=== PATIENT | female | born 1980 | race Caucasian/White ===

== ENCOUNTER → 2019-05-12 09:02 | Outpatient (BNVA) | payer SELFPAY | PROVIDERS: Family Provider Registered Nurse; PCP Registered Nurse; Visit Provider Registered Nurse | DX: R05 Cough; F51.01 Primary insomnia; J01.40 Acute pansinusitis, unspecified; E11.42 Type 2 diabetes mellitus with diabetic polyneuropathy; F17.200 Nicotine dependence, unspecified, uncomplicated | CPT/HCPCS: 82044; 83036; 87804 ==

== ENCOUNTER → 2019-12-09 11:27 | Outpatient (BNVA) | payer SELFPAY | PROVIDERS: Family Provider Registered Nurse; PCP Registered Nurse; Visit Provider Registered Nurse | DX: E11.9 Type 2 diabetes mellitus without complications (principal); E78.5 Hyperlipidemia, unspecified | CPT/HCPCS: 80053; 80061; 83036 ==

== ENCOUNTER → 2020-05-08 00:01 | Outpatient (BNVA) | payer SELFPAY | PROVIDERS: Family Provider Registered Nurse; PCP Registered Nurse; Visit Provider Registered Nurse | DX: I10 Essential (primary) hypertension (principal); E78.5 Hyperlipidemia, unspecified; E11.42 Type 2 diabetes mellitus with diabetic polyneuropathy; F17.200 Nicotine dependence, unspecified, uncomplicated | CPT/HCPCS: 80053; 80061; 83036; 85025 ==

== ENCOUNTER → 2020-09-05 11:07 | Outpatient (BNVA) | payer SELFPAY | PROVIDERS: Family Provider Registered Nurse; PCP Registered Nurse; Visit Provider Registered Nurse | DX: E11.42 Type 2 diabetes mellitus with diabetic polyneuropathy (principal); E78.5 Hyperlipidemia, unspecified | CPT/HCPCS: 80053; 80061; 83036; 85025 ==

== ENCOUNTER → 2020-12-19 11:04 | Outpatient (BNVA) | payer MEDICAID, SELFPAY | PROVIDERS: Family Provider Registered Nurse; PCP Registered Nurse; Visit Provider Registered Nurse | DX: E11.42 Type 2 diabetes mellitus with diabetic polyneuropathy (principal); Z23 Encounter for immunization | CPT/HCPCS: 83036 ==

== ENCOUNTER → 2021-06-06 10:09 | Outpatient (BNVA) | payer MEDICAID, SELFPAY | PROVIDERS: Family Provider Registered Nurse; PCP Registered Nurse; Visit Provider Registered Nurse | DX: E11.9 Type 2 diabetes mellitus without complications (principal) | CPT/HCPCS: 80053; 80061; 83036; 85025 ==

== ENCOUNTER → 2021-10-16 11:08 | Outpatient (BNVA) | payer MEDICAID, SELFPAY | PROVIDERS: Family Provider Registered Nurse; PCP Registered Nurse; Visit Provider Registered Nurse | DX: E11.9 Type 2 diabetes mellitus without complications (principal); M54.16 Radiculopathy, lumbar region; E11.42 Type 2 diabetes mellitus with diabetic polyneuropathy; Z12.31 Encounter for screening mammogram for malignant neoplasm of breast | CPT/HCPCS: 80053; 81000; 83036 ==

== ENCOUNTER 2021-10-25 06:19 | Outpatient (CLI) | payer MEDICAID, SELFPAY ==
--- NOTE | 2021-10-25 07:15 | MR_ITS ---
WS: [email or web address] MRI LUMBAR SPINE NONCONTRAST TECHNIQUE: Sagittal T1, T2 and STIR imaging. Axial T1 and T2 imaging. CLINICAL INFORMATION: M54.16 - Radiculopathy, lumbar region COMPARISON: None. FINDINGS: Mild lumbar curve. No acute compression. No high-grade central canal stenosis. Mild disc bulging wors e at L5-S1. L1-L2: Mild facet arthropathy. Spinal canal and foramen are patent. L2-L3: No significant disc bulging. Mild facet arthropathy. Spinal canal and foramen are patent. L3-L4: No significant disc bulging. Mild facet arthropathy. Spinal canal and foramen are patent. L4-L5: Minimal annular bulging. Mild facet arthropathy. Spinal canal and foramen are patent. L5-S1: Shallow RIGHT pericentral disc protrusion. Slight encroachment traversing RIGHT S1 nerve root. Mild facet arthropathy. Mild LEFT foraminal narrowing. Visualized pelvic bony structures: Normal. Paravertebral soft tissues: Normal. MR/MR lumbar spine wo con* [id number] IMPRESSION: 1. Mild lumbar curve. No acute compression. No high-grade central canal stenos is. 2. Tiny shallow RIGHT pericentral protrusion with slight encroachment traversi ng RIGHT S1 nerve root. Recommend correlation for RIGHT S1 nerve root symptoms. 3. Mild LEFT L4-L5 and LEFT L5-S1 bony foraminal narrowing. 4. Mild facet arthropathy L4-L5 and L5-S1.
== END 2021-10-25 06:20 | disposition home or self-care (01) ==
LOC: RAD 06:21
PROVIDERS: PCP Registered Nurse; Visit Provider Registered Nurse
DX: M54.16 Radiculopathy, lumbar region (principal); M47.816 Spondylosis without myelopathy or radiculopathy, lumbar region; M47.817 Spondylosis without myelopathy or radiculopathy, lumbosacral region
CPT/HCPCS: 72148

== ENCOUNTER 2021-10-28 09:59 | Outpatient (CLI) | payer MEDICAID, SELFPAY ==
--- NOTE | 2021-10-28 10:11 | MM_ITS ---
WS: [email or web address] SCREENING DIGITAL TOMOSYNTHESIS MAMMOGRAM WITH CAD HISTORY: Screening COMPARISON: None available. Bilateral CC and MLO with tomosynthesis views submitted. Synthetic mammography reviewed. Computer aid ed detection analyzed. Breast composition: There are scattered areas of fibroglandular density. No suspicious masses, microc alcifications or architectural distortion. Benign calcification central RIGHT breast. MM/[place] [id number] IMPRESSION: BI-RADS: 2-Benign FOLLOW UP: 1 Year Follow-up
== END 2021-10-28 10:00 | disposition home or self-care (01) ==
PROVIDERS: PCP Registered Nurse; Visit Provider Registered Nurse
DX: Z12.31 Encounter for screening mammogram for malignant neoplasm of breast (principal)
CPT/HCPCS: 77063; 77067

== ENCOUNTER → 2021-11-01 10:53 | Outpatient (BNVA) | payer MEDICAID, SELFPAY | PROVIDERS: PCP Registered Nurse; Visit Provider Emergency Medicine | DX: K02.9 Dental caries, unspecified (principal); J02.9 Acute pharyngitis, unspecified | CPT/HCPCS: 87071; 87880 ==

== ENCOUNTER 2021-11-06 06:00 | Outpatient (RCR) | payer MEDICAID, SELFPAY | END 2021-11-06 23:59 | disposition home or self-care (01) | LOC: MPT 06:00 | PROVIDERS: PCP Registered Nurse; Visit Provider Registered Nurse | DX: M54.16 Radiculopathy, lumbar region (principal); M54.9 Dorsalgia, unspecified; G89.29 Other chronic pain | CPT/HCPCS: 97162 ==

== ENCOUNTER 2021-11-07 06:00 | Outpatient (RCR) | payer MEDICAID, SELFPAY | END 2021-12-06 23:59 | disposition home or self-care (01) | LOC: MPT 06:00 | PROVIDERS: PCP Registered Nurse; Visit Provider Registered Nurse | DX: M54.16 Radiculopathy, lumbar region (principal); M54.9 Dorsalgia, unspecified; G89.29 Other chronic pain | CPT/HCPCS: 97110; 97140; G0283 ==

== ENCOUNTER → 2022-02-03 14:55 | Outpatient (BNVA) | payer MEDICAID, SELFPAY | PROVIDERS: PCP Registered Nurse; Visit Provider Anesthesiology Pain Medicine | DX: M47.816 Spondylosis without myelopathy or radiculopathy, lumbar region (principal); E11.9 Type 2 diabetes mellitus without complications; M54.16 Radiculopathy, lumbar region | CPT/HCPCS: 36416; 82962 ==

== ENCOUNTER → 2022-02-11 09:58 | Outpatient (BNVA) | payer MEDICAID, SELFPAY | PROVIDERS: PCP Registered Nurse; Visit Provider Registered Nurse | DX: E11.42 Type 2 diabetes mellitus with diabetic polyneuropathy (principal); F17.200 Nicotine dependence, unspecified, uncomplicated; G62.9 Polyneuropathy, unspecified; Z23 Encounter for immunization; E11.9 Type 2 diabetes mellitus without complications | CPT/HCPCS: 80053; 80061; 83036; 85025 ==

== ENCOUNTER → 2022-03-20 10:25 | Outpatient (BNVA) | payer MEDICAID, SELFPAY | PROVIDERS: PCP Registered Nurse; Visit Provider Anesthesiology Pain Medicine | DX: M54.6 Pain in thoracic spine (principal); M47.894 Other spondylosis, thoracic region | CPT/HCPCS: 72072 ==

== ENCOUNTER 2022-05-21 07:48 | Outpatient (CLI) | payer MEDICAID, SELFPAY ==
--- NOTE | 2022-05-21 08:00 | MR_ITS ---
WS: [email or web address] MRI THORACIC SPINE WITHOUT CONTRAST TECHNIQUE: Sagittal T1, T2 and STIR imaging. Axial T2 imaging. Noncontrast imaging obtained. CLINICAL INFORMATION: M51.9 - Unspecified thoracic, thoracolumbar and lumbosacr... COMPARISON: None. FINDINGS: Mild thoracic curve. No acute compression. No high-grade central canal stenosis cord signal is normal . Mild facet arthropathy in the lower thoracic spine. Anterior hypertrophic changes in the mid thorac ic spine. Mild bony foraminal narrowing RIGHT T7-T8, RIGHT T8-T9, LEFT T9-T10 and LEFT T10-T11. Normal caliber thoracic aorta. Adrenal glands are normal. Normal GE junction. MR/MR thoracic spin wo con* [id number] IMPRESSION: 1. Mild lumbar curve. Mild thoracic kyphosis. No acute compression fractures. 2. Cord signal is normal. 3. Mild anterior hypertrophic changes mid thoracic spine. 4. Mild facet arthropathy lower thoracic spine with mild bony foraminal narrow ing described above.
== END 2022-05-21 07:49 | disposition home or self-care (01) ==
LOC: RAD 07:50
PROVIDERS: PCP Registered Nurse; Visit Provider Anesthesiology Pain Medicine
DX: M51.9 Unspecified thoracic, thoracolumbar and lumbosacral intervertebral disc disorder (principal); M47.814 Spondylosis without myelopathy or radiculopathy, thoracic region; M48.04 Spinal stenosis, thoracic region
CPT/HCPCS: 72146

== ENCOUNTER → 2022-06-03 09:59 | Outpatient (BNVA) | payer MEDICAID, SELFPAY | PROVIDERS: PCP Registered Nurse; Visit Provider Registered Nurse | DX: E11.42 Type 2 diabetes mellitus with diabetic polyneuropathy (principal) | CPT/HCPCS: 80053; 81000; 82043; 83036 ==

== ENCOUNTER 2022-07-08 06:00 | Outpatient (RCR) | payer MEDICAID, SELFPAY | END 2022-08-06 23:59 | disposition home or self-care (01) | LOC: MPT 06:00 | PROVIDERS: PCP Registered Nurse; Visit Provider Anesthesiology Pain Medicine | DX: M54.50 Low back pain, unspecified (principal); G89.29 Other chronic pain | CPT/HCPCS: 97110; 97140; 97162; G0283 ==

== ENCOUNTER → 2022-08-28 14:10 | Outpatient (BNVA) | payer MEDICAID, SELFPAY | PROVIDERS: PCP Registered Nurse; Visit Provider Obstetrics & Gynecology | DX: Z01.419 Encounter for gynecological examination (general) (routine) without abnormal findings (principal) | CPT/HCPCS: 87624 ==

== ENCOUNTER → 2022-09-22 14:26 | Outpatient (BNVA) | payer MEDICAID, SELFPAY | PROVIDERS: PCP Registered Nurse; Visit Provider Anesthesiology Pain Medicine | DX: M54.16 Radiculopathy, lumbar region (principal); M51.36 Other intervertebral disc degeneration, lumbar region; M47.816 Spondylosis without myelopathy or radiculopathy, lumbar region | CPT/HCPCS: 64490; 64491; 64492; J3490 ==

== ENCOUNTER → 2022-10-07 13:10 | Outpatient (BNVA) | payer MEDICAID, SELFPAY | PROVIDERS: PCP Registered Nurse; Visit Provider Anesthesiology Pain Medicine | DX: M47.812 Spondylosis without myelopathy or radiculopathy, cervical region (principal); M54.16 Radiculopathy, lumbar region; M51.36 Other intervertebral disc degeneration, lumbar region; M47.816 Spondylosis without myelopathy or radiculopathy, lumbar region | CPT/HCPCS: 64490; 64491; 64492; J3490 ==

== ENCOUNTER → 2022-10-16 15:40 | Outpatient (BNVA) | payer MEDICAID, SELFPAY | PROVIDERS: PCP Registered Nurse; Referring Provider Registered Nurse; Visit Provider Orthopaedic Surgery | DX: M54.16 Radiculopathy, lumbar region (principal); M47.816 Spondylosis without myelopathy or radiculopathy, lumbar region; M48.07 Spinal stenosis, lumbosacral region | CPT/HCPCS: 36415; 72110; 80053; 81001; 83036; 85025 ==

== ENCOUNTER 2022-11-03 08:28 | Day surgery (SDC) | payer MEDICAID, SELFPAY ==
[2022-10-31 13:07] VITALS: BMI 34.9
[2022-11-03] VITALS (9 sets, daily range): BP systolic 106–154; BP diastolic 68–92; PULSE 82–115; RESP 16–18; TEMP 36.2–36.6; O2SAT 92–100
--- NOTE | 2022-11-03 | XR_ITS ---
WS: [email or web address] C-ARM RADIOGRAPHS LUMBAR SPINE; 2 IMAGES HISTORY: or pic. L5-S1 decompression COMPARISON: None available. Intraoperative imaging during lumbar spine decompression surgery. IMPRESSION: Intraoperative imaging during lumbar spine decompression surgery.
[2022-11-03 08:51] LABS: OR HCG Qualitative Urine Negative (Negative)
[2022-11-03 09:34] LABS: Glucose Point of Care 187 mg/dL (70-110)
[2022-11-03] MEDS: sodium chloride 0.9% 1,000 ML 30 ML IV (09:35)
--- NOTE | 2022-11-03 09:50 | ANES.PREANE2 ---
Pre-Anesthetic Assessment Height/Weight: Height 1.6 m Weight 89.358 kg O2 Del Method Room Air 11/03/22 09:07 Preop Diagnosis: Lumbosacral radiculopathy Operation Date: 11/03/22 10:25 Proposed Procedures p [id number]: left L5-S1 minimally invasive decompression, M54.16 : Lumbar back pain with radiculopathy affecting lower extremity(Left) - Kedar Fuentes, Familial anesthetic complications: none Was Beta Aleks taken within 24 hours: N/A Was Clonidine taken within 24 hours: N/A Last intake: Intake Last Liquid Date 11/02/22 Last Liquid Time 23:00 Last Solid Date 11/02/22 Last Solid Time 20:00 Social Tobacco and No alcohol Exam alert, oriented x 3, clear to auscultation bilaterally and regular rate & rhythm Airway Mallampati: Class I Dentition: other (multiple missing) Pulmonary Asthma and Sleep Apnea Metabolic Diabetes Mellitus Anesthetic Plan ASA status: 3 Anesthesia: General Risk of > 500 ml blood loss (7ml/kg in children): No Medications/Allergies Home Medications Medication Instructions Recorded Confirmed Last Taken Type fluticasone propionate 230 2 puff inhalation BID #12 grams 06/06/21 10/31/22 11/01/22 Rx mcg-salmeterol 21 mcg/actuation HFA inhaler (Advair HFA) buspirone 30 mg tablet 30 mg PO BID 30 days #60 tabs 02/05/22 10/31/22 11/01/22 Rx duloxetine 60 mg capsule,delayed 120 mg PO QAM 30 days #60 caps 02/05/22 10/31/22 11/01/22 Rx release trazodone 100 mg tablet 200 mg PO .qhs 30 days #60 tabs 02/05/22 10/31/22 11/01/22 Rx albuterol sulfate 90 mcg/actuation 2 puff inhalation Q6H PRN 06/03/22 10/31/22 11/02/22 Rx aerosol inhaler (ProAir HFA) bronchospasm #6.7 grams blood-glucose meter (Accu-Chek #1 ea 06/03/22 10/30/22 Unknown Rx Guide Glucose Meter) metformin 1,000 mg tablet See Rx Instructions .Route 06/03/22 10/31/22 10/31/22 Rx .COMPLEX #180 tabs pregabalin 150 mg capsule (Lyrica) 150 mg PO DAILY 30 days #30 caps 06/03/22 10/31/22 11/03/22 06:00 Rx pregabalin 75 mg capsule (Lyrica) 75 mg PO BID 30 days #60 caps 06/03/22 10/31/22 11/02/22 Rx rosuvastatin 10 mg tablet (Crestor) 10 mg PO DAILY #90 tabs 06/03/22 10/31/22 10/31/22 Rx sitagliptin phosphate 100 mg 100 mg PO DAILY 90 days #90 tabs 06/03/22 10/31/22 10/31/22 Rx tablet (Januvia) blood sugar diagnostic (Accutrend #50 ea 08/22/22 10/30/22 Unknown Rx Glucose test strips) lancets 30 gauge (BD Ultra-Fine II #200 ea 08/22/22 10/30/22 Unknown Rx Lancets) dulaglutide 1.5 mg/0.5 mL See Rx Instructions .Route 09/19/22 10/31/22 10/26/22 Rx subcutaneous pen injector .COMPLEX #4 mL (Trulicity) Allergies Allergy/AdvReac Type Severity Reaction Status Date / Time aspirin Allergy Severe ALGY-Rash Verified 10/31/22 13:04 Penicillins Allergy Rash, Verified 10/30/22 08:09 throat swelling Current Medications Generic Name Dose Route Start Last Admin Trade Name Freq PRN Reason Stop Dose Admin Sodium Chloride 1,000 mls @ 30 mls/hr 11/03/22 08:45 11/03/22 09:35 Sodium Chloride 0.9% IV 11/04/22 08:44 30 mls/hr .Q24H KODY Administration PFSH Anesthesia Medical History Anxiety Asthma Depression Diabetes mellitus type 2, controlled Hyperlipidemia Insomnia Psychiatric care Psychiatric care Surgical History History of appendectomy Family History Other Cancer Diabetes Heart disease Hypertension Social History Smoking and tobacco status: current every day smoker Alcohol intake: never Substance/Drug Use: never Adopted: No Caregiver/support person: No Lives independently: No Household members: spouse Marital status: service: No Sexually active: Yes Do you think of yourself as: Straight/Heterosexual Female Reproductive History Date of last menstrual period: 10/01/22 Data Anesthesia Cardiac Studies: No Data to Display
[2022-11-03] MEDS: fentaNYL 50 mcg/mL INJ 2mL IVP (09:53)
[2022-11-03] MEDS: scopolamine 1.5 Patch 1 PATCH TRANSDERMA (09:53)
--- NOTE | 2022-11-03 11:16 | W.PM.OPSUD ---
Surgery/Procedure H&P Update DATE OF PROCEDURE: November 03, 2022 DATE H&P PERFORMED: 10/16/22 H&P UPDATE INFORMATION: I have reviewed H&P completed within last 30 days, I have examined patient prior to procedure and No changes to prior documentation PREOP DIAGNOSIS: Lumbosacral radiculopathy PLANNED PROCEDURE: Operation Date: 11/03/22 10:25 Proposed Procedures p [id number]: left L5-S1 minimally invasive decompression, M54.16 : Lumbar back pain with radiculopathy affecting lower extremity(Left) - Kedar Fuentes DO
--- NOTE | 2022-11-03 11:41 | SUR.PREOP ---
09:53 medicated for back pain 10:30 moderate relief of back pain. resting with eyes closed.
[2022-11-03] MEDS: ceFAZolin 2,000 MG in sodium chloride 0.9% (plus) 50 ML 100 MG IV (11:59)
[2022-11-03] MEDS: lidocaine-epi 1% 20 mL INJ INJECTION (12:26)
--- NOTE | 2022-11-03 12:52 | P.OP_ITS ---
Operative Report Date of procedure: November 03, 2022 Pre-op diagnosis: Preop Diagnosis Lumbosacral radiculopathy Post-op diagnosis: same Procedure done: left L5/S1 laminectomy with partial facetectomy Surgeon: [facility] Insurance Representative: [facility] Insurance Representative: The surgical product sales consultant, Baldemar Williamson, [email or web address] was needed for his expertise under the microscope. He was important and necessary throughout the procedure to complete in a safe and timely manner. He assisted with patient positioning prepping and draping tissue retraction suctioning of the operative field protection of the dural sac and tissue closure Procedure: left L5/S1 laminectomy with partial facetectomy Patient is brought to the operative suite. After undergoing anesthesia they are placed in the prone position. All areas of impingement are well padded. Patient is then prepped and draped in the normal sterile fashion. A skin incision is made over the L5-S1 level. This is confirmed under c-arm guidance. A series of dilators are passed and the tubular retractor is docked on the L5 lamina. A bovie is used to clear the soft tissue off the lamina and the L 5/S1 facet joint. A high speed lauri is then used to perform the laminectomy and take down the medial aspect of the L 5/S1 facet joint. A kerrison rongeure was then used to take down the remaining lamina and smooth the edge of the laminectomy up to the point where the ligamentum flavum attaches. Attention was then brought to the medial aspect of the facet joint. The remaining medial aspect of the superior and inferior aspect of the facet joint were taken down with the kerrison from the pedicle of L5 to S1. The facet joint had significant hypertrophy. Attention was then brought to the Ligamentum Flavum. The ligament was taken down from the lamina of L5 to S1 and out medially to the remaining facet joint. The ligament was thick. The dura was then exposed. The dura was in good repair. The L5 nerve was then traced with a curette out the L5/S1 foramen and found to be adequately decompressed. The S1 nerve was traced with a curette around the S1 pedicle. The lateral recess was opened with a kerrison helping to further decompress the S1 nerve. Wound is then irrigated copiously with saline and surgiflo is used to stop any bleeding. The tubular retractor is removed and the wound is closed with vicryl and monocryl suture. Glue is then used to protect the wound. A sterile dressing is then placed. Patient was then placed in the supine position and transferred to the PACU in stable condition.
[2022-11-03] MEDS: HYDROcodone-acetaminophen 5-325 mg Tablet 2 TAB PO (14:33)
--- NOTE | 2022-11-03 15:05 | ANE.PACU2 ---
Inpatient post-anesthesia follow up: Airway intact: Yes Vital signs: Temperature 97.8 F Pulse Rate 82 Respiratory Rate 16 Blood Pressure 106/68 Pulse Oximetry 95 Oxygen Delivery Me thod Room Air Oxygen Flow Rate 3 Fraction of Inspir ed Oxygen Hydration adequate: Yes Nausea and vomiting: No Pain level: 1 Mental status: Baseline
[2022-11-03] MEDS: cetylpyridinium Lozenge 1 EACH MUCOUS MEM (15:06)
--- NOTE | 2022-11-03 15:12 | SUR.PHASEII ---
15:00 no redness or drainage noted from surgical incisions.
== END 2022-11-03 15:10 | disposition home or self-care (01) ==
PROVIDERS: PCP Registered Nurse; Visit Provider Orthopaedic Surgery
PROC: (CPT 63005; principal; 2022-11-03 10:15)
DX: M54.16 Radiculopathy, lumbar region (principal); G47.30 Sleep apnea, unspecified; E11.9 Type 2 diabetes mellitus without complications; E78.5 Hyperlipidemia, unspecified; F17.210 Nicotine dependence, cigarettes, uncomplicated
CPT/HCPCS: 63047; 36416; 72020; 76000; 81025; 82962; 84703; J0131; J0690; J1100; J1170; J1200; J2250; J2405; J2704; J3010; J3490; J3535; J7030

== ENCOUNTER → 2023-05-05 09:36 | Outpatient (BNVA) | payer MEDICAID, SELFPAY ==
[2023-01-05 11:57] VITALS: BP 138/85; BMI 38.3
== END ==
PROVIDERS: PCP Registered Nurse; Visit Provider Registered Nurse
DX: E11.9 Type 2 diabetes mellitus without complications (principal)
CPT/HCPCS: 80053; 83036; 85025

== ENCOUNTER → 2023-10-09 10:11 | Outpatient (BNVA) | payer MEDICAID, SELFPAY ==
[2023-01-05 11:57] VITALS: BP 138/85; BMI 38.3
== END ==
PROVIDERS: PCP Registered Nurse; Visit Provider Registered Nurse
DX: E11.9 Type 2 diabetes mellitus without complications (principal); E11.42 Type 2 diabetes mellitus with diabetic polyneuropathy; F12.90 Cannabis use, unspecified, uncomplicated; F51.01 Primary insomnia
CPT/HCPCS: 83036; 85025

== ENCOUNTER → 2024-01-18 09:21 | Outpatient (BNVA) | payer MEDICAID, SELFPAY ==
[2023-01-05 11:57] VITALS: BP 138/85; BMI 38.3
== END ==
PROVIDERS: PCP Registered Nurse; Visit Provider Registered Nurse
DX: E11.42 Type 2 diabetes mellitus with diabetic polyneuropathy (principal)
CPT/HCPCS: 80053; 83036